=== PATIENT | male | born 1990 | race American Indian/Alaskan Native ===

== ENCOUNTER 2018-09-23 08:13 | Emergency (ER) | payer OTHER ==
[2018-09-23 08:28] VITALS: BP 138/65
[2018-09-23] MEDS ORDERED: NORCO 5/325 PO ONE ×2 (09:35→09:48)
[2018-09-23] MEDS ORDERED: TORADOL IM ONE ×2 (09:35→09:48)
--- NOTE | 2018-09-23 09:47 | Emergency Department Report ---
ED General Adult HPI - General Chief complaint: Pain General Stated complaint: HEADACHE/NERVE PAIN Time Seen by Provider: 09/23/18 09:27 Source: patient Mode of arrival: Wheelchair Limitations: No Limitations - History of Present Illness Initial comments: Mr. Benavidez is a 27 yo male with hx of "neuropathy" since age 14. Has previously seen a neurologist. Given Gabapentin. Normally pain occurs when he is ill. He currently has cold symptoms of nasal congestion mild headache. He has "nerve pain" in the lower legs. -: Gradual, days(s) (2) Location: left, right, lower extremity Severity scale (0 -10): 7 Quality: burning Consistency: constant Improves with: none Worsens with: none Associated Symptoms: denies other symptoms - Related Data Previous Rx's Medication Instructions Recorded Last Taken Type Gabapentin [Neurontin] 100 mg PO TID 10 Days #30 capsule 09/23/18 Unknown Rx Allergies Allergy/AdvReac Type Severity Reaction Status Date / Time No Known Allergies Allergy Unverified 09/23/18 08:19 ED Review of Systems ROS: Stated complaint: HEADACHE/NERVE PAIN Other details as noted in HPI Comment: All other systems reviewed and negative Constitutional: malaise. denies: fever Cardiovascular: denies: chest pain ED Past Medical Hx - Past Medical History Previous Medical History?: Yes Additional medical history: Neuropathy - Surgical History Past Surgical History?: No - Social History Smoking Status: Never Smoker Substance Use Type: Marijuana - Medications Home Medications: Home Medications Medication Instructions Recorded Confirmed Last Taken Type Gabapentin [Neurontin] 100 mg PO TID 10 Days #30 capsule 09/23/18 Unknown Rx ED Physical Exam - General Limitations: No Limitations General appearance: alert, in no apparent distress - Head Head exam: Present: atraumatic, normocephalic - Eye Eye exam: Present: normal appearance - ENT ENT exam: Present: mucous membranes moist - Neck Neck exam: Present: normal inspection, full ROM - Respiratory Respiratory exam: Present: normal lung sounds bilaterally. Absent: respiratory distress, wheezes, rales, rhonchi - Cardiovascular Cardiovascular Exam: Present: regular rate, normal rhythm, normal heart sounds. Absent: systolic murmur, diastolic murmur, rubs, gallop - GI/Abdominal GI/Abdominal exam: Present: soft, normal bowel sounds. Absent: distended, tenderness, guarding, rebound - Rectal Rectal exam: Present: deferred - Extremities Exam Extremities exam: Present: normal inspection - Back Exam Back exam: Present: normal inspection - Neurological Exam Neurological exam: Present: alert, oriented X3 - Psychiatric Psychiatric exam: Present: normal affect, normal mood - Skin Skin exam: Present: warm, dry, intact, normal color. Absent: rash ED Course Vital Signs 09/23/18 08:27 Temperature 98.7 F Pulse Rate 89 Respiratory 14 Rate Blood Pressure 138/65 O2 Sat by Pulse 100 Oximetry ED Medical Decision Making - Medical Decision Making Mr. Benavidez presents with "nerve pain" in his lower extremities. Diagnosis appears to be unclear. Neurologically intact. Strongly encouraged full outpatient evaluation. Prescribed gabapentin Critical care attestation.: If time is entered above; I have spent that time in minutes in the direct care of this critically ill patient, excluding procedure time. ED Disposition Clinical Impression: Nerve pain, Bilateral leg pain Disposition: DC-01 TO HOME OR SELFCARE Is pt being admited?: No Does the pt Need Aspirin: No Condition: Stable Instructions: Lumbar Radiculopathy (ED), Peripheral Neuropathy (ED) Prescriptions: Gabapentin [Neurontin] 100 mg PO TID 10 Days #30 capsule Referrals: [facility] [Outside] - 3-5 Days Forms: Work/School Release Form(ED)
[2018-09-23] MEDS ORDERED: DELTASONE PO ONE (09:49)
== END 2018-09-23 10:10 | disposition home or self-care (01) ==
LOC: ED 08:13
DX: M79.604 Pain in right leg (principal); M79.605 Pain in left leg; G58.8 Other specified mononeuropathies; F12.10 Cannabis abuse, uncomplicated; G62.9 Polyneuropathy, unspecified
CPT/HCPCS: 96372; 99282; J1885; J7512

== ENCOUNTER 2019-03-15 12:51 | Emergency (ER) | payer SELFPAY ==
[2019-03-15 13:07] VITALS: BP 109/76
--- NOTE | 2019-03-15 13:10 | Event Note ---
ED Screening Note Date of service: 03/15/19 Time: 13:05 ED Screening Note: This is a 28 y.o. M. that presents to the ER with generalized burning sensation. PMH of polyneuropathy Taking gabapentin daily but not controlling pain. Patient states pain aggravated when he get sick. Patient states he is taking medication for URI. This initial assessment/diagnostic orders/clinical plan/treatment(s) is/are subject to change based on patients health status, clinical progression and re-assessment by fellow clinical providers in the ED. Further treatment and workup at subsequent clinical providers discretion. Patient/guardian urged not to elope from the ED as their condition may be serious if not clinically assessed and managed. Initial orders include:
[2019-03-15] MEDS ORDERED: TYLENOL #3 PO ONE (14:04)
--- NOTE | 2019-03-15 14:09 | Emergency Department Report ---
ED General Adult HPI - General Chief complaint: Pain General Stated complaint: NERVE DAMAGE Time Seen by Provider: 03/15/19 13:05 Source: patient Mode of arrival: Ambulatory Limitations: No Limitations - History of Present Illness Initial comments: pt is a 28-year-old male with a past medical history of hereditary peripheral neuropathy presents emergency room with complaints of pain in his hands, feet, knees for the last few days. States that he previously took gabapentin that ran out of 4 days ago due to insurance but states it "stopped working" per patient. He states that he recently got over a URI and believes this is what triggered his discomfort. He denies any swelling or fever. denies any other past medical history or allergies medications. - Related Data Previous Rx's Medication Instructions Recorded Last Taken Type Gabapentin [Neurontin] 100 mg PO TID 10 Days #30 capsule 09/23/18 Unknown Rx Capsaicin [High Potency Capsaicin] 1 applicatio TP BID #1 cream..g. 03/15/19 Unknown Rx Naproxen 500 mg PO BID PRN #14 tablet 03/15/19 Unknown Rx Allergies Allergy/AdvReac Type Severity Reaction Status Date / Time No Known Allergies Allergy Unverified 09/23/18 08:19 ED Review of Systems ROS: Stated complaint: NERVE DAMAGE Other details as noted in HPI Comment: All other systems reviewed and negative ED Past Medical Hx - Past Medical History Previous Medical History?: Yes Additional medical history: Neuropathy - Surgical History Past Surgical History?: No - Social History Smoking Status: Never Smoker Substance Use Type: Marijuana - Medications Home Medications: Home Medications Medication Instructions Recorded Confirmed Last Taken Type Gabapentin [Neurontin] 100 mg PO TID 10 Days #30 capsule 09/23/18 Unknown Rx Capsaicin [High Potency Capsaicin] 1 applicatio TP BID #1 cream..g. 03/15/19 Unknown Rx Naproxen 500 mg PO BID PRN #14 tablet 03/15/19 Unknown Rx ED Physical Exam - General Limitations: No Limitations General appearance: alert, in no apparent distress - Head Head exam: Present: atraumatic, normocephalic - Eye Eye exam: Present: normal appearance - ENT ENT exam: Present: mucous membranes moist - Respiratory Respiratory exam: Present: normal lung sounds bilaterally. Absent: respiratory distress, wheezes, rales, rhonchi, stridor, chest wall tenderness, accessory muscle use, decreased breath sounds, prolonged expiratory - Cardiovascular Cardiovascular Exam: Present: regular rate, normal rhythm, normal heart sounds. Absent: systolic murmur, diastolic murmur, rubs, gallop - Extremities Exam Extremities exam: Present: other (no edema or erythema present in any of the edward nts, 2+ radial pulses and posterior tibialis pulses bilaterally, no deformities) - Neurological Exam Neurological exam: Present: alert, oriented X3 - Psychiatric Psychiatric exam: Present: normal affect, normal mood - Skin Skin exam: Present: warm, dry, intact ED Course Vital Signs 03/15/19 03/15/19 13:05 15:46 Temperature 98.1 F 98.1 F Pulse Rate 97 H 97 H Respiratory 20 20 Rate Blood Pressure 109/76 O2 Sat by Pulse 100 100 Oximetry ED Medical Decision Making - Medical Decision Making pt is a 28-year-old male with a past medical history of hereditary peripheral neuropathy presents emergency room with complaints of pain in his hands, feet, knees for the last few days. States that he previously took gabapentin that ran out of 4 days ago due to insurance but states it "stopped working" per patient. He states that he recently got over a URI and believes this is what triggered his discomfort. He denies any swelling or fever. denies any other past medical history or allergies medications. vitals are normal. on exam: no edema or erythema present in any of the joints, 2+ radial pulses and posterior tibialis pulses bilaterally, no deformities. given prescription for naproxen and capsaicin. advised pt to please use medication as prescribed. please follow-up with a primary care doctor in the next 2-3 days. given a list of community resources and a Painting [employer] card to lower your prescription cost. Return to the emergency room for any new or worsening symptoms. Critical care attestation.: If time is entered above; I have spent that time in minutes in the direct care of this critically ill patient, excluding procedure time. ED Disposition Clinical Impression: Peripheral neuropathy Qualifiers: Peripheral neuropathy type: polyneuropathy, unspecified Qualified Code(s): G62.9 - Polyneuropathy, unspecified Disposition: -01 TO HOME OR SELFCARE Is pt being admited?: No Does the pt Need Aspirin: No Condition: Stable Instructions: Peripheral Neuropathy (ED) Additional Instructions: Please use medication as prescribed. please follow-up with a primary care doctor in the next 2-3 days. given a list of community resources and a Painting [employer] card to lower your prescription cost. Return to the emergency room for any new or worsening symptoms. Prescriptions: Capsaicin [High Potency Capsaicin] 1 applicatio TP BID #1 cream..g. Naproxen 500 mg PO BID PRN #14 tablet PRN Reason: pain Referrals: [facility] [Provider Group] - 2-3 Days [facility] [Outside] - 2-3 Days [facility] [Outside] - 2-3 Days Forms: Work/School Release Form(ED) Time of Disposition: 14:09 Print Language: ESTONIAN
== END 2019-03-15 15:46 | disposition home or self-care (01) ==
LOC: ED 12:51
DX: G62.9 Polyneuropathy, unspecified (principal); F12.10 Cannabis abuse, uncomplicated

== ENCOUNTER 2019-03-17 15:51 | Emergency (ER) | payer SELFPAY ==
--- NOTE | 2019-03-17 15:59 | Emergency Department Report ---
Blank Doc - Documentation Documentation: 28-year-old male that presents with chest pain and SOB. This initial assessment/diagnostic orders/clinical plan/treatment(s) is/are subject to change based on patient's health status, clinical progression and re- assessment by fellow clinical providers in the ED. Further treatment and workup at subsequent clinical providers discretion. Patient/guardians urged not to elope from the ED as their condition may be serious if not clinically assessed and managed. Initial orders include: 1- Patient sent to [facility] for further evaluation and treatment 2- CXR 3- labs 4- EKG
[2019-03-17 17:18] LABS: Alanine Aminotransferase 99 units/L (7-56); Albumin 4.7 g/dL (3.9-5); BUN/Creatinine Ratio 11; Blood Urea Nitrogen 9 mg/dL (9-20); Calcium 9.8 mg/dL (8.4-10.2); Hemolysis Index 32
[2019-03-17 17:32] LABS: Hematocrit 46.6 % (35.5-45.6); Hemoglobin 15.8 gm/dl (11.8-15.2); Mean Corpuscular HGB Conc 34 % (32-34); Mean Corpuscular Volume 93 fl (84-94); Platelet Count 225 K/mm3 (140-440); Red Blood Count 5.01 M/mm3 (3.65-5.03); Red Cell Distribution Width 13.4 % (13.2-15.2)
[2019-03-17 17:47] LABS: Basophils % (Auto) 0.3 % (0.0-1.8); Eosinophils % (Auto) 0.4 % (0.0-4.3); Lymphocytes # (Auto) 2.2 K/mm3 (1.2-5.4); Lymphocytes % (Auto) 30.4 % (13.4-35.0); Monocytes # (Auto) 0.7 K/mm3 (0.0-0.8)
--- NOTE | 2019-03-17 17:50 | XRay Report ---
CHEST 2 VIEWS INDICATION / CLINICAL INFORMATION: Chest Pain. COMPARISON: None available. FINDINGS: SUPPORT DEVICES: None. HEART / MEDIASTINUM: No significant abnormality. LUNGS / PLEURA: No significant pulmonary or pleural abnormality. .No pneumothorax. ADDITIONAL FINDINGS: No significant additional findings. IMPRESSION: 1. No acute findings. Signer Name: Terrell Sadler MD Signed: 03/17/2019 5:45 PM Workstation Name: [id number]
[2019-03-17] MEDS ORDERED: ZOFRAN IV ONE (19:14)
[2019-03-17] MEDS ORDERED: TORADOL IV ONE (19:14)
[2019-03-17] MEDS ORDERED: NACL 0.9% 1000 ML 1,000 ML IV ONE (19:14)
--- NOTE | 2019-03-17 20:10 | Emergency Department Report ---
ED General Adult HPI - General Chief complaint: Pain General Stated complaint: CHEST PAIN Time Seen by Provider: 03/17/19 15:57 Source: patient Mode of arrival: Ambulatory Limitations: No Limitations - History of Present Illness Initial comments: Mrs. Benavidez is a 28-year-old -[place] male who presents for epigastric pain 09/09 that radiates to RUQ x 1 week. pt states he was seen days ago for same but has not followed up with pcp. pt advises that he patient advises he smokes marijuana 2-3 times a week, patient denies shortness of breath there is no diaphoresis no nausea vomiting. Says relieved by nothing, pain is exacerbated by movement. pt is tolerating po intake at this time. Onset/Timin -: week(s) (milligrams daily his versus acute) Location: chest, abdomen (epigasteric/ RUQ ) Severity scale (0 -10): 5 Quality: aching Consistency: constant Improves with: none Worsens with: movement, other (breathing ) Associated Symptoms: chest pain, cough, malaise. denies: confusion, diaphoresis, fever/chills, headaches, nausea/vomiting, rash, seizure, shortness of breath, syncope, weakness Treatments Prior to Arrival: none - Related Data Previous Rx's Medication Instructions Recorded Last Taken Type Gabapentin [Neurontin] 100 mg PO TID 10 Days #30 capsule 09/23/18 Unknown Rx Capsaicin [High Potency Capsaicin] 1 applicatio TP BID #1 cream..g. 03/15/19 Unknown Rx Naproxen 500 mg PO BID PRN #14 tablet 03/15/19 Unknown Rx Famotidine [Pepcid] 20 mg PO BID #30 tablet 03/17/19 Unknown Rx Naproxen [Naprosyn TAB] 500 mg PO BID PRN #30 tablet 03/17/19 Unknown Rx Allergies Allergy/AdvReac Type Severity Reaction Status Date / Time No Known Allergies Allergy Unverified 09/23/18 08:19 ED Review of Systems ROS: Stated complaint: CHEST PAIN Other details as noted in HPI Constitutional: malaise Eyes: denies: eye pain, eye discharge, vision change ENT: denies: ear pain, throat pain Respiratory: cough. denies: shortness of breath, wheezing Cardiovascular: chest pain Endocrine: no symptoms reported Gastrointestinal: abdominal pain. denies: nausea, vomiting, diarrhea, cons tipation, hematemesis, melena, hematochezia Genitourinary: denies: urgency, dysuria, frequency, hematuria Musculoskeletal: denies: back pain, joint swelling, arthralgia Skin: denies: rash, lesions Neurological: as per HPI. denies: headache, weakness, paresthesias, vertigo Psychiatric: anxiety. denies: depression Hematological/Lymphatic: as per HPI ED Past Medical Hx - Past Medical History Previous Medical History?: Yes Additional medical history: Neuropathy - Surgical History Past Surgical History?: No - Social History Smoking Status: Never Smoker Substance Use Type: Marijuana - Medications Home Medications: Home Medications Medication Instructions Recorded Confirmed Last Taken Type Gabapentin [Neurontin] 100 mg PO TID 10 Days #30 capsule 09/23/18 Unknown Rx Capsaicin [High Potency Capsaicin] 1 applicatio TP BID #1 cream..g. 03/15/19 Unknown Rx Naproxen 500 mg PO BID PRN #14 tablet 03/15/19 Unknown Rx Famotidine [Pepcid] 20 mg PO BID #30 tablet 03/17/19 Unknown Rx Naproxen [Naprosyn TAB] 500 mg PO BID PRN #30 tablet 03/17/19 Unknown Rx ED Physical Exam - General Limitations: No Limitations General appearance: alert, in no apparent distress - Head Head exam: Present: atraumatic, normocephalic - Eye Eye exam: Present: normal appearance, PERRL, EOMI Pupils: Present: normal accommodation - ENT ENT exam: Present: normal orophraynx, mucous membranes moist, TM's normal bilaterally, normal external ear exam - Neck Neck exam: Present: normal inspection, full ROM. Absent: tenderness, meningismus, lymphadenopathy, thyromegaly - Respiratory Respiratory exam: Present: chest wall tenderness (right anterior chest wall ). Absent: wheezes, rales, rhonchi, stridor, accessory muscle use, decreased breath sounds, prolonged expiratory - Cardiovascular Cardiovascular Exam: Present: regular rate, normal rhythm, normal heart sounds. Absent: systolic murmur, diastolic murmur, rubs, gallop - GI/Abdominal GI/Abdominal exam: Present: soft, distended, tenderness (epigastric ), normal bowel sounds. Absent: guarding, rebound, rigid, bruit, hernia - Rectal Rectal exam: Present: deferred - Extremities Exam Extremities exam: Present: normal inspection - Back Exam Back exam: Present: normal inspection, full ROM. Absent: tenderness, CVA tenderness (R), CVA tenderness (L), paraspinal tenderness, vertebral tenderness, rash noted - Neurological Exam Neurological exam: Present: alert, oriented X3, CN II-XII intact, normal gait, reflexes normal. Absent: motor sensory deficit - Psychiatric Psychiatric exam: Present: normal affect, normal mood - Skin Skin exam: Present: warm, dry, intact, normal color. Absent: rash ED Medical Decision Making - Lab Data Result diagrams: 03/17/19 16:18 03/17/19 16:18 Labs 03/17/19 03/17/19 03/17/19 16:18 16:18 16:34 WBC 7.3 RBC 5.01 Hgb 15.8 H Hct 46.6 H MCV 93 MCH 32 MCHC 34 RDW 13.4 Plt Count 225 Lymph % (Auto) 30.4 [place] % (Auto) 9.0 H Eos % (Auto) 0.4 Baso % (Auto) 0.3 Lymph # 2.2 [place] # 0.7 Eos # 0.0 Baso # 0.0 Seg Neutrophils % 59.9 Seg Neutrophils # 4.4 Sodium 140 Potassium 4.5 Chloride 102.4 Carbon Dioxide 18 L Anion Gap 24 BUN 9 Creatinine 0.8 Estimated GFR > 60 BUN/Creatinine Ratio 11 Glucose 97 Calcium 9.8 Total Bilirubin 0.50 AST 164 H ALT 99 H Alkaline Phosphatase 42 Troponin T < 0.010 Total Protein 7.6 Albumin 4.7 Albumin/Globulin Ratio 1.6 Lipase 03/17/19 03/17/19 19:05 19:05 WBC RBC Hgb Hct MCV MCH MCHC RDW Plt Count Lymph % (Auto) [place] % (Auto) Eos % (Auto) Baso % (Auto) Lymph # [place] # Eos # Baso # Seg Neutrophils % Seg Neutrophils # Sodium Potassium Chloride Carbon Dioxide Anion Gap BUN Creatinine Estimated GFR BUN/Creatinine Ratio Glucose Calcium Total Bilirubin AST ALT Alkaline Phosphatase Troponin T < 0.010 Total Protein Albumin Albumin/Globulin Ratio Lipase 13 - EKG Data EKG shows normal: sinus rhythm, axis, intervals, QRS complexes, ST-T waves Rate: normal - EKG Data When compared to previous EKG there are: no significant change Interpretation: normal EKG (ekg interp by ed attending no ST Elevated [place] , ), nonspecific ST-T wave lisha - Radiology Data Radiology results: report reviewed (right), image reviewed Ordering Physician: PEGGY BLAIR NP Date of Service: 03/17/19 Procedure(s): XR chest routine 2V Accession Number(s): [id number] cc: PEGGY BLAIR NP Fluoro Time In Minutes: CHEST 2 VIEWS INDICATION / CLINICAL INFORMATION: Chest Pain. COMPARISON: None available. FINDINGS: SUPPORT DEVICES: None. HEART / MEDIASTINUM: No significant abnormality. LUNGS / PLEURA: No significant pulmonary or pleural abnormality. .No pneumoth orax. ADDITIONAL FINDINGS: No significant additional findings. IMPRESSION: 1. No acute findings. Signer Name: Terrell Sadler MD Signed: 03/17/2019 5:45 PM Workstation Name: [id number] Transcribed By: Dictated By: Terrell Sadler MD Electronically Authenticated By: Terrell Sadler MD Signed Date/Time: 03/17/191744 DD/ 44 TD/TT: Ordering Physician: SANDRA FAY NP Date of Service: 03/17/19 Procedure(s): US abdomen limited Accession Number(s): [id number] cc: SANDRA FAY NP ULTRASOUND ABDOMEN, LIMITED (RIGHT UPPER QUADRANT) INDICATION: RUQ Pain. COMPARISON: None available. FINDINGS: Pancreas: Not seen due to overlying gas. Liver: Normal. Gallbladder: Normal. Bile ducts: Normal. Common Bile Duct measures 1.1 mm. Free fluid: None. Additional Findings: None. IMPRESSION: 1. No sonographic abnormality of the right upper quadrant. Signer Name: Igor Lambert MD Signed: 03/17/2019 8:48 PM Workstation Name: [id number] Transcribed By: VIRGILIO Dictated By: Igor Lambert MD Electronically Authenticated By: Igor Lambert MD Signed Date/Time: 03/17/192047 DD/ 43 TD/TT: - Medical Decision Making Chest x-ray is normal no infiltrates no opacities. Gallbladder ultrasound normal, heart score :0 KEITH Score:0, ast and alt, mildly evated, discussed findings with patient, patient advised to stop smoking marijuana, plan: naproxen prn chest wall pain, pepcid po bid, follow up with GI. Follow up with pcp , continue to hydrate, stop substance. pt is currently a/o x 3 ambulatory with steady gait nad, dc'd in stable condition, vital signs noted normal, nuse to post to official chart. Critical care attestation.: If time is entered above; I have spent that time in minutes in the direct care of this critically ill patient, excluding procedure time. ED Disposition Clinical Impression: Chest wall pain, RUQ abdominal pain Disposition: TO HOME OR SELFCARE Is pt being admited?: No Does the pt Need Aspirin: No Condition: Stable Instructions: Chest Pain (ED), Abdominal Pain (ED), Cannabis Abuse (ED) Prescriptions: Naproxen [Naprosyn TAB] 500 mg PO BID PRN #30 tablet PRN Reason: pain Famotidine [Pepcid] 20 mg PO BID #30 tablet Referrals: [facility] [Provider Group] - 3-5 Days [facility] [Outside] - 3-5 Days Forms: Work/School Release Form(ED)
--- NOTE | 2019-03-17 20:53 | Ultrasound Report ---
ULTRASOUND ABDOMEN, LIMITED (RIGHT UPPER QUADRANT) INDICATION: RUQ Pain. COMPARISON: None available. FINDINGS: Pancreas: Not seen due to overlying gas. Liver: Normal. Gallbladder: Normal. Bile ducts: Normal. Common Bile Duct measures 1.1 mm. Free fluid: None. Additional Findings: None. IMPRESSION: 1. No sonographic abnormality of the right upper quadrant. Signer Name: Igor Lambert MD Signed: 03/17/2019 8:48 PM Workstation Name: [id number]
[2019-03-17 22:11] VITALS: BP 127/80
== END 2019-03-17 22:07 | disposition home or self-care (01) ==
LOC: ED 15:51
DX: R10.13 Epigastric pain (principal); R07.89 Other chest pain; F12.10 Cannabis abuse, uncomplicated
CPT/HCPCS: 36415; 71046; 76705; 80053; 83690; 84484; 85025; 93005; 93010; 96374; 96375; 99285; J1885; J2405; J7030

== ENCOUNTER 2020-09-14 13:38 | Emergency (ER) | payer SELFPAY ==
[2020-09-14 14:45] VITALS: BP 110/61
--- NOTE | 2020-09-14 16:23 | Emergency Department Report ---
ED General Adult HPI - General Chief complaint: Abdominal Pain Stated complaint: BACK/SIDE PAIN Time Seen by Provider: 09/14/20 16:15 Source: patient Mode of arrival: Ambulatory Limitations: No Limitations - History of Present Illness Initial comments: Patient is a 29-year-old male presents emergency room with complaints of right posterior rib pain that began a couple days ago. Patient states that he fell asleep on the couch the other night and when he woke up he had this pain. He states his pain is worse with movement and with twisting. He denies any fall or injury. 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 He denies any fever, nausea, vomiting, diarrhea, cough, hemoptysis, shortness of breath, pleuritic chest pain, abdominal pain. No past medical history. No allergies medications. - Related Data Previous Rx's Medication Instructions Recorded Last Taken Type Gabapentin [Neurontin] 100 mg PO TID 10 Days #30 capsule 09/23/18 Unknown Rx Capsaicin [High Potency Capsaicin] 1 applicatio TP BID #1 cream..g. 03/15/19 Unknown Rx Naproxen 500 mg PO BID PRN #14 tablet 03/15/19 Unknown Rx Famotidine [Pepcid] 20 mg PO BID #30 tablet 03/17/19 Unknown Rx Naproxen [Naprosyn TAB] 500 mg PO BID PRN #30 tablet 03/17/19 Unknown Rx Menthol/Camphor [[place] 1 applicatio TP BID #18 oint...g. 09/14/20 Unknown Rx Ointment] Naproxen [EC-Naprosyn] 500 mg PO BID PRN #14 tablet.dr 09/14/20 Unknown Rx methOCARBAMOL [Robaxin TAB] 500 mg PO BID PRN #14 tab 09/14/20 Unknown Rx Allergies Allergy/AdvReac Type Severity Reaction Status Date / Time No Known Allergies Allergy Unverified 09/23/18 08:19 ED Review of Systems ROS: Stated complaint: BACK/SIDE PAIN Other details as noted in HPI Comment: All other systems reviewed and negative ED Past Medical Hx - Past Medical History Previous Medical History?: Yes Additional medical history: Neuropathy - Surgical History Past Surgical History?: No - Social History Smoking Status: Never Smoker Substance Use Type: Marijuana - Medications Home Medications: Home Medications Medication Instructions Recorded Confirmed Last Taken Type Gabapentin [Neurontin] 100 mg PO TID 10 Days #30 capsule 09/23/18 Unknown Rx Capsaicin [High Potency Capsaicin] 1 applicatio TP BID #1 cream..g. 03/15/19 Unknown Rx Naproxen 500 mg PO BID PRN #14 tablet 03/15/19 Unknown Rx Famotidine [Pepcid] 20 mg PO BID #30 tablet 03/17/19 Unknown Rx Naproxen [Naprosyn TAB] 500 mg PO BID PRN #30 tablet 03/17/19 Unknown Rx Menthol/Camphor [[place] 1 applicatio TP BID #18 oint...g. 09/14/20 Unknown Rx Ointment] Naproxen [EC-Naprosyn] 500 mg PO BID PRN #14 tablet.dr 09/14/20 Unknown Rx methOCARBAMOL [Robaxin TAB] 500 mg PO BID PRN #14 tab 09/14/20 Unknown Rx ED Physical Exam - General Limitations: No Limitations General appearance: alert, in no apparent distress - Head Head exam: Present: atraumatic, normocephalic - Eye Eye exam: Present: normal appearance - ENT ENT exam: Present: mucous membranes moist - Neck Neck exam: Present: normal inspection, full ROM. Absent: tenderness - Respiratory Respiratory exam: Present: normal lung sounds bilaterally, chest wall tenderness (right posterior rib ttp, no crepitus, no deformity, no ecchymosis ). Absent: respiratory distress, wheezes, rales, rhonchi, stridor, accessory muscle use, decreased breath sounds, prolonged expiratory - Cardiovascular Cardiovascular Exam: Present: regular rate, normal rhythm, normal heart sounds. Absent: systolic murmur, diastolic murmur, rubs, gallop - Back Exam Back exam: Present: normal inspection, full ROM. Absent: paraspinal tenderness, vertebral tenderness - Neurological Exam Neurological exam: Present: alert, oriented X3 - Psychiatric Psychiatric exam: Present: normal affect, normal mood - Skin Skin exam: Present: warm, dry, intact ED Course Vital Signs 09/14/20 14:44 Temperature 98.2 F Pulse Rate 62 Respiratory 16 Rate Blood Pressure 110/61 O2 Sat by Pulse 100 Oximetry ED Medical Decision Making - Radiology Data Radiology results: report reviewed Ordering Physician: KIRSTY CRAIN Date of Service: 09/14/20 Procedure(s): XR ribs UNI w PA Chest 3+V RT Accession Number(s): [id number] cc: KIRSTY CRAIN Fluoro Time In Minutes: Rib series-5 views INDICATION: right posterior rib pain. COMPARISON: None. IMPRESSION: No acute osseous abnormality. Clear lungs with normal heart size. Signer Name: Eliseo Zamudio MD Signed: 09/14/2020 4:50 PM Workstation Name: [id number] Transcribed By: DESMOND Dictated By: Eliseo Zamudio MD Electronically Authenticated By: Eliseo Zamudio MD Signed Date/Time: 09/14/201649 DD/ 48 TD/TT: Print - Medical Decision Making Patient is a 29-year-old male presents emergency room with complaints of right posterior rib pain that began a couple days ago. Patient states that he fell asleep on the couch the other night and when he woke up he had this pain. He states his pain is worse with movement and with twisting. He denies any fall or injury. 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 He denies any fever, nausea, vomiting, diarrhea, cough, hemoptysis, shortness of breath, pleuritic chest pain, abdominal pain. No past medical history. No allergies medications. Vitals are normal. On exam:right posterior rib ttp, no crepitus, no deformity, no ecchymosis. X-ray ribs with chest: IMPRESSION: No acute osseous a bnormality. Clear lungs with normal heart size. Symptoms likely related to costochondritis. Patient given prescriptions. Discussed strict return precautions. Discussed the importance of primary care follow-up. Advised patient Please use medication as prescribed. Do not drive or operate machinery while taking muscle relaxer Robaxin. May use ice pack, heating pad, rest, Epsom bath. Follow-up with your primary care doctor for reexamination. Return to emergency room for new or worsening symptoms. Critical care attestation.: If time is entered above; I have spent that time in minutes in the direct care of this critically ill patient, excluding procedure time. ED Disposition Clinical Impression: Rib pain on right side Disposition: DC- TO HOME OR SELFCARE Is pt being admited?: No Does the pt Need Aspirin: No Condition: Stable Instructions: Costochondritis Additional Instructions: Please use medication as prescribed. Do not drive or operate machinery while t aking muscle relaxer Robaxin. May use ice pack, heating pad, rest, Epsom bath. Follow-up with your primary care doctor for reexamination. Return to emergency room for new or worsening symptoms. Your x-ray is within normal limits Prescriptions: Naproxen [EC-Naprosyn] 500 mg PO BID PRN #14 tablet.dr PRN Reason: pain methOCARBAMOL [Robaxin TAB] 500 mg PO BID PRN #14 tab PRN Reason: pain Menthol/Camphor [[place] Ointment] 1 applicatio TP BID #18 oint...g. Referrals: ISHAAN MERCADO MD [Staff Physician] - 3-5 Days [facility] [Provider Group] - 3-5 Days Time of Disposition: 17:12 Print Language: TURKISH
--- NOTE | 2020-09-14 16:54 | XRay Report ---
Rib series-5 views INDICATION: right posterior rib pain. COMPARISON: None. IMPRESSION: No acute osseous abnormality. Clear lungs with normal heart size. Signer Name: Eliseo Zamudio MD Signed: 09/14/2020 4:50 PM Workstation Name: [id number]
== END 2020-09-14 17:25 | disposition home or self-care (01) ==
LOC: ED 13:38
DX: R07.81 Pleurodynia (principal); Z79.899 Other long term (current) drug therapy; F12.10 Cannabis abuse, uncomplicated
CPT/HCPCS: 99283

== ENCOUNTER 2020-10-12 03:54 | Emergency (ER) | payer SELFPAY ==
[2020-10-12 04:15] VITALS: BP 128/89
--- NOTE | 2020-10-12 04:53 | Emergency Department Report ---
ED General Adult HPI - General Chief complaint: Sore Throat Stated complaint: THROAT PAIN/COLD SX Time Seen by Provider: 10/12/20 04:39 Source: patient Mode of arrival: Ambulatory Limitations: No Limitations - History of Present Illness Initial comments: 29-year-old male patient presents emergency department with complaints of sore throat and nasal congestion for 2 days. Patient states he was recently released from [facility] and his symptoms began after he left the facility. No current steroid or antibiotic use. Patient also complains of diffuse pain secondary to peripheral neuropathy, which he was diagnosed with as an adolescent. He is not under the care of a primary care provider. Denies fever, chills, headache, neck stiffness, cough, shortness of breath, wheezing, vomiting, diarrhea, dysphagia, hoarseness. Denies all other complaints at this time. - Related Data Previous Rx's Medication Instructions Recorded Last Taken Type Gabapentin [Neurontin] 100 mg PO TID 10 Days #30 capsule 09/23/18 Unknown Rx Capsaicin [High Potency Capsaicin] 1 applicatio TP BID #1 cream..g. 03/15/19 Unknown Rx Naproxen 500 mg PO BID PRN #14 tablet 03/15/19 Unknown Rx Famotidine [Pepcid] 20 mg PO BID #30 tablet 03/17/19 Unknown Rx Naproxen [Naprosyn TAB] 500 mg PO BID PRN #30 tablet 03/17/19 Unknown Rx Menthol/Camphor [[place] 1 applicatio TP BID #18 oint...g. 09/14/20 Unknown Rx Ointment] Naproxen [EC-Naprosyn] 500 mg PO BID PRN #14 tablet. 09/14/20 Unknown Rx methOCARBAMOL [Robaxin TAB] 500 mg PO BID PRN #14 tab 09/14/20 Unknown Rx Brompheniramine/Pseudoephed/Dm 10 ml PO Q4H #1 bottle 10/12/20 Unknown Rx [Bromfed Dm Cough Syrup] Ibuprofen [Motrin 800 MG tab] 800 mg PO Q8HR #15 tablet 10/12/20 Unknown Rx Allergies Allergy/AdvReac Type Severity Reaction Status Date / Time No Known Allergies Allergy Unverified 09/23/18 08:19 ED Review of Systems ROS: Stated complaint: THROAT PAIN/COLD SX Other details as noted in HPI Other: GENERAL: Negative for fever, chills, weight change, anorexia, fatigue. ENT: Positive for sore throat and congestion. CARDIOVASCULAR: Negative for chest pain, palpitations, lower extremity swelling. PULMONARY: Negative for cough, dyspnea, wheezing, orthopnea, cyanosis. GASTROINTESTINAL: Negative for abdominal pain, nausea, vomiting, diarrhea, constipation. MUSCULOSKELETAL: Positive for myalgias. NEUROLOGICAL: Negative for headache, seizure, syncope, paresthesias, weakness. INTEGUMENTARY: Negative for erythema, rash, diaphoresis, laceration, ecchymosis. HEMATOLOGICAL: Negative for hemoptysis, hematemesis, hematochezia, hematuria. PSYCHIATRIC: Negative for hallucinations, suicidal ideation, homicidal ideation, anxiety, depression. ED Past Medical Hx - Past Medical History Previous Medical History?: Yes Additional medical history: Neuropathy - Surgical History Past Surgical History?: No - Social History Smoking Status: Current Every Day Smoker Substance Use Type: Marijuana - Medications Home Medications: Home Medications Medication Instructions Recorded Confirmed Last Taken Type Gabapentin [Neurontin] 100 mg PO TID 10 Days #30 capsule 09/23/18 Unknown Rx Capsaicin [High Potency Capsaicin] 1 applicatio TP BID #1 cream..g. 03/15/19 Unknown Rx Naproxen 500 mg PO BID PRN #14 tablet 03/15/19 Unknown Rx Famotidine [Pepcid] 20 mg PO BID #30 tablet 03/17/19 Unknown Rx Naproxen [Naprosyn TAB] 500 mg PO BID PRN #30 tablet 03/17/19 Unknown Rx Menthol/Camphor [[place] 1 applicatio TP BID #18 oint...g. 09/14/20 Unknown Rx Ointment] Naproxen [EC-Naprosyn] 500 mg PO BID PRN #14 tablet.dr 09/14/20 Unknown Rx methOCARBAMOL [Robaxin TAB] 500 mg PO BID PRN #14 tab 09/14/20 Unknown Rx Brompheniramine/Pseudoephed/Dm 10 ml PO Q4H #1 bottle 10/12/20 Unknown Rx [Bromfed Dm Cough Syrup] Ibuprofen [Motrin 800 MG tab] 800 mg PO Q8HR #15 tablet 10/12/20 Unknown Rx ED Physical Exam - General Limitations: No Limitations - Other Other exam information: General: Awake and alert. No acute distress. Head: Atraumatic, normocephalic. Eyes: EOMI. Pupils are equal and round. Normal sclera and conjunctiva. ENT: Nasal congestion present. Oral mucosa is moist. Pharyngeal erythema without tonsillar swelling or exudate. Uvula is midline and nonedematous. No trismus. No voice changes. Neck: Supple. No lymphadenopathy. Pulmonary: No respiratory distress. Clear to auscultation bilaterally. Cardiac: Regular rate and rhythm. Pulses are palpable and equal bilaterally. No lower extremity cyanosis or edema. Skin: Warm and dry. No rashes. Abdomen: Soft, non-tender, non-protuberant. No guarding, rigidity, or rebound. Bowel sounds are normal. No organomegaly or masses noted. Back: Normal alignment. No CVA tenderness. Extremities: Symmetrical. Full range of motion intact. Neurological: Alert and oriented, appropriately interactive, no focal deficits. Psych: Cooperative. Appropriate mood and affect. Speech is evenly metered. Thoughts are logically construed. ED Course Vital Signs 10/12/20 03:59 Temperature 99.0 F Pulse Rate 107 H Respiratory 18 Rate Blood Pressure 128/89 O2 Sat by Pulse 98 Oximetry ED Medical Decision Making - Medical Decision Making Differential diagnosis including but not limited to: strep pharyngitis, viral pharyngitis, peritonsillar abscess, Jeremy's angina, mononucleosis, allergic rhinitis, otitis media, sinusitis On reevaluation, patient remains stable. Tachycardia resolved without intervention. Repeat heart rate 88 bpm. Patient is afebrile, hemodynamically stable, no respiratory distress, no hypoxia. No clinical evidence to suggest bacterial infection, airway obstruction, or dehydration warranting further diagnostic work-up on an emergent basis at this time. Patient will be discharged home with appropriate symptomatic treatment for presumed viral illness and referred to primary care provider for close outpatient follow-up. Patient expressed understanding and is agreeable to plan of care. Disease transmission precautions discussed. Strict return precautions provided. Repeat exam is unremarkable and benign. History, exam, diagnostic testing, and current condition do not suggest worrisome pathology to warrant further testing, continued ED treatment, admission, or surgical evaluation at this point. Given the low probability of a significant medical illness, it would be more likely to result in harm than benefit to perform further testing at this stage. Discussed findings, presumptive diagnosis, need for follow-up and specific signs/symptoms that should prompt immediate return to the emergency department. Instructions were explained in detail to the patient in addition to giving written discharge information. Patient expressed understanding and was given the opportunity to ask questions, all of which were satisfactorily answered prior to discharge home. Critical care attestation.: If time is entered above; I have spent that time in minutes in the direct care of this critically ill patient, excluding procedure time. ED Disposition Clinical Impression: Nasopharyngitis acute Disposition: DC-01 TO HOME OR SELFCARE Is pt being admited?: No Does the pt Need Aspirin: No Condition: Stable Instructions: Upper Respiratory Infection, Adult Additional Instructions: Take Bromfed as directed for symptomatic relief. Take Tylenol every 4 hours and Motrin every 8 hours as needed for pain. Rest. Drink plenty fluids. Wash hands frequently to prevent disease transmission. Do not share food or drinks with others. Follow-up with primary care provider this week. Call today to schedule an appointment. See referral information below. Return to the emergency department immediately for new or worsening symptoms. Prescriptions: Brompheniramine/Pseudoephed/Dm [Bromfed Dm Cough Syrup] 10 ml PO Q4H #1 bottle Ibuprofen [Motrin 800 MG tab] 800 mg PO Q8HR #15 tablet Referrals: ISHAAN MERCADO MD [Staff Physician] - 3-5 Days [facility] [Provider Group] - 3-5 Days Time of Disposition: 04:54
== END 2020-10-12 05:00 | disposition home or self-care (01) ==
LOC: ED 03:54
DX: J00 Acute nasopharyngitis [common cold] (principal); F17.200 Nicotine dependence, unspecified, uncomplicated; F12.90 Cannabis use, unspecified, uncomplicated; Z79.899 Other long term (current) drug therapy
CPT/HCPCS: 99282